=== PATIENT | male | born 1960 | race Caucasian/White ===

== ENCOUNTER → 2017-05-21 | Day surgery (SDC) | payer MEDICARE, MEDICAID ==
[~2017-05-21] VITALS: Ht 172.7 cm; Wt 80.2 kg
[~2017-05-21] MED LIST: BUSPIRONE HCL15 MG PO; CALCIUM 600 +1 EAC3 PO; FLOMAX0.4 MG PO; FLONASE 50 MCG/16 GM NOSE; MIRALAX17 GM PO; PERIDEX15 ML PO; VITAMIN D-40400 UNIT PO; ZOCOR40 MG PO; ZYPREXA5 MG PO; ZYRTEC10 MG PO
--- NOTE | ~2017-05-21 | OR ---
PATIENT'S NAME: BASSEM VYAS [facility] AGE: 56 Y [address] ROOM: [place] [id number] [place] [facility] [place] DATE: 05/21/2017 OR/Procedure Report DISCHARGE DATE: FAMILY PHYSICIAN: Gray Vides MD ATTENDING PHYSICIAN: Concepcion De La O SURGEON: Concepcion De La O DDS SHAPER SETTER: Anne Rasheed. DATE OF PROCEDURE: 05/21/2017 PREOPERATIVE DIAGNOSIS: Repair of carious lesions with or without extraction. POSTOPERATIVE DIAGNOSIS: Carious lesions repaired without extraction. OPERATION PERFORMED: Repair of carious lesions with or without extraction. DESCRIPTION OF PROCEDURE: The patient arrived at outpatient in good health and n.p.o. The patient has decay, is mentally challenged, and cannot complete treatment in the office. There was a presurgical consultation with the rocket propellant plant supervisor, and all questions were answered. The patient was taken to the OR. In the supine position, the patient was prepped and draped in the usual manner. The patient was nasally intubated and administered general anesthesia. An IV was placed prior to the intubation. A throat pack was then placed to occlude the pharynx. An oral exam was completed. A mouth prop was utilized. The oral rehabilitation was as follows: 19, distal occlusal amalgam. All amalgams are Valero contour amalgam with Copalite cavity varnish. A periapical was taken after the filling to check complete fill. The mouth was then rinsed, and the throat pack was removed. 3M ELIECER Vanish 5% sodium fluoride varnish was applied to all dentition. Blood loss was minimal. The patient tolerated the procedure well and was transferred to Recovery in good and stable condition. There was a postsurgical consult with outsole caser, and all questions were answered. CONCEPCION DE LA O DDS TLP/modl /[id number] d: 05/21/17 1444 t: 05/24/17 0956, OPERATIVE SUMMARY
== END | disposition disaster alternative care site (69) ==
LOC: GPOC 05-14 09:00 → GSDC 05-14 09:00
PROC: 0CRWXJ0 Replacement of Upper Tooth, Single, with Synthetic Substitute, External Approach (ICD-10-PCS; principal; 2017-05-21)
DX: K02.9 Dental caries, unspecified (principal); E78.00 Pure hypercholesterolemia, unspecified; E78.5 Hyperlipidemia, unspecified; Z79.899 Other long term (current) drug therapy
CPT/HCPCS: J2001; J7030